=== PATIENT | female | born 1960 | race Caucasian/White ===

== ENCOUNTER → 2024-03-10 14:11 | Outpatient (REF) | payer OTHER, SELFPAY | LOC: RAD 14:11 | PROVIDERS: ATTENDING PHYSICIAN Physician Assistant; FAMILY PHYSICIAN Family Medicine | DX: M25.562 Pain in left knee (principal); M79.641 Pain in right hand; M79.642 Pain in left hand | CPT/HCPCS: 73130; 73564 ==

== ENCOUNTER 2025-02-02 13:04 | Emergency (ER) | payer OTHER, SELFPAY ==
[2025-02-02 13:05] VITALS: BP 148/74
[2025-02-02 13:22] LABS: % Basophils 0.9 % (0-2); % Eosinophils 0.2 % (0-6); % Immature Granulocytes 0.4 % (0-0.5); % Lymphocytes 13.7 % (20.5-51.1); % Monocytes 5.8 % (1.7-9.3); Absolute Basophils 0.1 10^3/uL (0-0.2); Absolute Immature Granulocytes 0.1 10^3/uL (0-0.05); Absolute Lymphocytes 1.8 10^3/uL (1.2-3.4); Absolute Monocytes 0.7 10^3/uL (0.1-0.6); Absolute Neutrophils 10.1 10^3/uL (1.4-6.5); Hematocrit 39.1 % (37.0-47.0); Hemoglobin 13.5 g/dL (12.0-16.0); Mean Corp Hgb Conc. 34.5 g/dL (33.0-37.0); Mean Corpuscular Hgb 33.3 pg (27.0-31.0); Mean Corpuscular Volume 96.5 fL (81.0-99.0); Mean Platelet Volume 9.3 fL (7.4-10.4); Nucleated Red Blood Cells % 0 %; Platelet Count 403 10^3/uL (130-400); Red Blood Cell Count 4.05 10^6/uL (4.20-5.40); Red Cell Dist. Width 12.3 % (11.5-14.5); White Blood Cell Count 12.7 10^3/uL (4.8-10.8)
[2025-02-02 13:47] LABS: Troponin I < 0.012 ng/ml
[2025-02-02 13:50] LABS: ALT (SGPT) 16 U/L (0-35); AST (SGOT) 26 U/L (14-36); Alkaline Phosphatase 84 U/L (38-126); Blood Urea Nitrogen 15 mg/dl (7-17); Calcium 9.8 mg/dl (8.4-10.2); Carbon Dioxide 24 mmol/L (22-30); Chloride 103 mmol/L (98-107); Glucose 151 mg/dl (70-99); Potassium 4.8 mmol/L (3.5-5.1); Sodium 134 mmol/L (135-145); Total Bilirubin 0.3 mg/dl (0.2-1.3); Total Protein 7.7 g/dl (6.3-8.2); eGFR > 60.00
--- NOTE | 2025-02-02 14:53 | ED.GENMED ---
History of Present Illness
General
Chief Complaint: Dizziness
Source: patient and spouse
Exam Limitations: none
Time Seen by Provider: 02/02/25 14:52
History of Present Illness
History of Present Illness:
64-year-old female with a episode of dizziness that she describes it starting about 10:00 this morning. Has been on Bactrim for 3 days for a possible nasal infection. During these episodes she does not describe disequilibrium or vertigo. On
repeat questioning she more describes it as feeling like she might pass out. states she cognitively did not seem to answer quite as well during these episodes although she stated she does did not feel like talking. She denied unusual
headache chest pain shortness of breath. She did not notice heart racing. She was not diaphoretic cyanotic or pale per the . However she did notice she has had some frequent burping this morning. Not indigestion but burping. She
currently has no symptoms and is asymptomatic.
Past History
Past History
ED Past Medical History: Psychiatric and Other (History removal of a benign mass)
ED Past Surgical History: Other (Neck surgery)
Social History
Tobacco: Smoker
Alcohol: None
Family History
Family History: Other (Father with myelodysplastic syndrome and prostate cancer)
Review of Systems
Review of Systems
All Other Systems: Not applicable
Constitutional: Denies fever or chills
Respiratory: Denies trouble breathing
Cardiac: Denies diaphoresis or palpitations
Neurological: Denies headache or numbness
Phy Exam
Physical Exam
Physical Exam:
GENERAL: Alert and oriented in no apparent distress. Sitting up nontoxic interacting appropriately
EYE: Orbits normal. Extraocular intact. No nystagmus
NECK: Supple, no carotid bruit.
ENT: Minimal intranasal erythema with possibly 1 tiny pustule. No masses no bleeding no significant swelling
CARDIAC: Regular rate and rhythm without any obvious murmurs.
LUNGS: Clear breath sounds,normal
ABDOMEN: Soft, without focal tenderness or distention
NEUROLOGICAL: Alert and oriented , cranial nerves II through XII intact. Speech normal. Gait normal. Negative Romberg.
SKIN: Warm and dry, no rash or lesion, no discoloration, skin intact.
MUSCULOSKELETAL: No edema,no deformity.Good color
PSYCH: Normal and appropriate interaction..
Course
Orders/Labs/Results
Orders:
Orders
02/02/25 13:08
ECG [Electrocardiogram (*1)] Urgent
Reason for Study: Vertigo / Dizzy
EKG- Treatment ONCE
02/02/25 13:09
Complete Blood Count/With Diff Urgent
Comprehensive Metabolic Panel Urgent
Troponin I Urgent
02/02/25 15:12
IV Insert/Care/Rem.- Treatment PRN
0.9% Sodium Chloride 500 ml [Nss] 500 ml IV BOLUS
02/02/25 15:13
CT Head W/o Iv Contrast Urgent
Comment:
Reason For Exam: Disequilibrium/transient mental status change
CT Neck Angio W/wo Iv Contrast Urgent
Comment:
Reason For Exam: Disequilibrium/transient mental status change
02/02/25 15:14
EKG- Treatment ONCE
02/02/25 16:00
Electrocardiogram (*1) Stat
Reason for Study: Other
Other Reason for Exam: chest pain
02/02/25 16:13
Troponin I Urgent
02/02/25 17:14
Aspirin Chewable [Low Strength Aspirin] 81 mg PO NOW STA
Abnormal Lab Results
02/02/25
13:09
WBC 12.7 H 10^3/uL
(4.8-10.8)
RBC 4.05 L 10^6/uL
(4.20-5.40)
MCH 33.3 H pg
(27.0-31.0)
Plt Count 403 H 10^3/uL
(130-400)
Abs Immat Gran (auto) 0.1 H 10^3/uL
(0-0.05)
Absolute Neuts (auto) 10.1 H 10^3/uL
(1.4-6.5)
Absolute Monos (auto) 0.7 H 10^3/uL
(0.1-0.6)
Neutrophils % 79.0 H %
(42.2-75.2)
Lymphocytes % 13.7 L %
(20.5-51.1)
Sodium 134 L mmol/L
(135-145)
Glucose 151 H mg/dl
(70-99)
02/02/25 13:09
02/02/25 13:09
Vital Signs
Initial and Last Documented VS:
Initial Vital Signs
Temp Pulse Resp BP Pulse Ox
98.2 F 97 16 148/74 99
02/02/25 13:05 02/02/25 13:05 02/02/25 13:05 02/02/25 13:05 02/02/25 13:05
Last Documented Vital Signs
Temp Pulse Resp BP Pulse Ox
98.2 F 80 18 118/62 99
02/02/25 13:05 02/02/25 16:24 02/02/25 16:24 02/02/25 16:24 02/02/25 16:24
MDM/Problems Addressed
Differential Diagnosis Includes:
Patient describing the onset of more of a lightheaded feeling which later on she described as feeling like she might pass out. Multiple episodes each lasting 10 to 15 minutes. During this episode she had some burping but denies indigestion chest
pressure shortness of breath diaphoresis. She is currently asymptomatic. Cardiac versus neurologic concerns. Cardiac mcdonald she does smoke. She is not describing any classic or even close to classic symptoms. However with burping and lightheaded
sensation cardiac etiology needs to be considered. Initial EKG is nonspecific initial troponin negative. We will repeat those at the 3-hour hayden. From a neurologic standpoint her neurologic exam is normal at this time again her major risk factor
would be smoking. We will get a CT head CTA of neck to evaluate for any vascular issue in the neck. Asymptomatic currently. Not convinced this is medication related.
*Radiology
Radiology exam reviewed: radiology read reviewed (No acute findings)
*Pulse Oximetry
Patient hypoxic: no
*EKG
Interpreted by ED Provider?: Yes
Interpretation: abnormal
Comparison EKG: no comparison EKG present
Heart Rate: 86
Rate: normal
Rhythm: sinus
[place]: normal axis
Interval: normal interval
QRS Pattern: normal QRS
Ischemia: non-specific ST changes
*Critical Care Note
Total Time (30-74mins, 75-104mins- exclusive of procedures): Not Applicable
Data Reviewed
Review of Other/Old Records Reveals: Labs, Records and Testing
Update Note
Update Note:
Repeat EKG stable. Troponin testing negative. CT testing negative. Neurologic exam benign. Theoretically this could have been some kind of atypical TIA or anginal equivalent although very atypical for both. We will have her take an aspirin a
day and follow-up with cardiology.
ED Attending Note
-
Portions of this chart may have been created with voice recognition software.� Occasional wrong word or��sound alike� substitutions may have occurred due to the inherent limitations of voice recognition software.
Discharge Plan
Departure
Patient Disposition: Home (Routine Discharge)
Date of Disposition: 02/02/25
Time of Disposition: 17:15
Patient with high blood pressure during this ER visit?: No
Discharge Problem:
Transient near syncope
Instructions: Dizziness, Nonvertigo, (DC), Near Fainting (DC), Chest Pain DCA Follow Up
Prescriptions:
No Action
multivitamin 1 EACH tablet
1 ea PO DAILY
citalopram 20 MG tablet
40 mg PO DAILY
ibuprofen 600 MG tablet
600 mg PO Q6HPRN PRN (Reason: pain) Qty: 20 0RF
Referrals:
Juan F Abraham MD [Family Provider] - Follow up in 2-3 days
Activity Restrictions/Additional Instructions:
Take a baby aspirin per day
Return with any recurrent episode or any other unusual symptoms
Your blood sugar was also mildly elevated and this should be followed up through your primary physician
Interventions
Interventions:
*Risk Screen - Suicide Last Done: 02/02/25 15:25
*General Assessment Last Done: 02/02/25 15:25
*Neglect/Abuse Screening Last Done: 02/02/25 15:25
ED- Neurological Assessment Last Done: 02/02/25 15:25
ED Swallowing Screen Last Done: 02/02/25 15:59
Discharge Date and Time
Print Language: MALAWIAN
[2025-02-02] MEDS: NSS 500 IV (16:11)
[2025-02-02 16:24] VITALS: BP 118/62
[2025-02-02 16:52] LABS: Troponin I < 0.012 ng/ml
[2025-02-02] MEDS: LOW STRENGTH ASPIRIN 81 MG PO (17:22)
== END 2025-02-02 17:51 | disposition home or self-care (01) ==
LOC: EMR 13:04
PROVIDERS: Emergency Medicine; EMERGENCY PHYSICIAN Emergency Medicine; FAMILY PHYSICIAN Family Medicine
DX: R55 Syncope and collapse (principal); F17.200 Nicotine dependence, unspecified, uncomplicated
CPT/HCPCS: 99285; 96360; 96361; 70450; 70498; 80053; 84484; 85025; 93005; Q9967

== ENCOUNTER → 2025-06-29 14:51 | Outpatient (REF) | payer OTHER, SELFPAY | LOC: HWWDC 14:51 | PROVIDERS: ATTENDING PHYSICIAN Family Medicine | DX: Z12.31 Encounter for screening mammogram for malignant neoplasm of breast (principal) | CPT/HCPCS: 77063; 77067 ==

== ENCOUNTER → 2025-07-04 15:19 | Outpatient (REF) | payer OTHER, SELFPAY | LOC: RAD 15:19 | PROVIDERS: ATTENDING PHYSICIAN Family Medicine | DX: M47.812 Spondylosis without myelopathy or radiculopathy, cervical region (principal); M54.50 Low back pain, unspecified | CPT/HCPCS: 72110 ==

== ENCOUNTER → 2025-07-28 21:18 | Outpatient (REF) | payer OTHER, SELFPAY | LOC: PAVMRI 21:18 | PROVIDERS: ATTENDING PHYSICIAN Pain Medicine Interventional Pain Medicine; FAMILY PHYSICIAN Family Medicine | DX: M54.16 Radiculopathy, lumbar region (principal) | CPT/HCPCS: 72148 ==